=== PATIENT | female | born 1995 | race Hispanic/Latino ===

== ENCOUNTER 2019-10-31 16:53 | Emergency (ER) | payer OTHER, MEDICARE ==
[~2019-10-31 16:53] MED LIST: OXCA300L PO; SENN8.8S10 PO
[2019-10-31] MEDS ORDERED: DIPHENHYDRAMINE HCL 25 MG CAPSULE ONE (17:22)
[2019-10-31] MEDS ORDERED: PREDNISONE 20 MG TABLET ONE (17:22)
== END 2019-10-31 18:54 | disposition home or self-care (01) ==
LOC: EDH 16:53
DX: T78.49XA Other allergy, initial encounter (principal); W57.XXXA Bitten or stung by nonvenomous insect and other nonvenomous arthropods, initial encounter
CPT/HCPCS: 73140; 99283; Q0163